=== PATIENT | male | born 1970 | race Caucasian/White ===

== ENCOUNTER 2017-10-17 15:37 | Day surgery (SDC) | payer BC, SELFPAY ==
[2017-10-17 16:10] VITALS: BP 107/65; PULSE 71; RESP 20; TEMP 36.6; O2SAT 97
--- NOTE | 2017-10-17 16:13 | HMH.PMPROC ---
- Procedure Date: 10/17/17 Time: 16:18 Anesthesiologist:: Royce Briseno CRNA Complications:: None Pre-procedure Diagnosis:: Right sacroiliitis Post-procedure Diagnosis:: Same Indications for Procedure:: Very pleasant 47-year-old white male that is complaining of right hip pain. He has extreme point tenderness over the right SI joint. Procedure Details:: Procedure: Right sacroliliac joint injection under fluoroscopy Informed consent was obtained and the risk and benefits of the procedure were explained to the patient.~ The patient was taken to the procedure room and noninvasive monitors were placed including noninvasive blood pressure cuff and pulse oximeter.~ The patient was placed prone on the procedure table.~ The~ right hip was cleansed using Betadine as a cleansing solution.~ C-arm fluorosocpy was used to view the right SI joint.~ The skin and subcutaneous tissues were anesthetized using Lidocaine 1.5% and a 25-gauge needle.~ After this, a 22-gauge spinal needle was inserted under fluoroscopic guidance into the inferior aspect of the right SI joint.~ Omnipaque dye was injected and a good spread was seen throughout the joint.~ After this, approximately 5 mL of bupivacaine 0.25% and Depo-Medrol 40 mg was incrementally injected into the sacroiliac joint.~ The patient tolerated the procedure well with no complications.~ The patient was observed in the Pain Clinic, then discharged home neurologically intact.~ Plan and Disposition:: She was reevaluated 10 minutes post procedure. He reports 75% improvement terms of right hip pain.
[2017-10-17 16:17] VITALS: BP 138/83; PULSE 67; RESP 18
[2017-10-17 16:18] VITALS: BP 140/90; PULSE 67; RESP 18
[2017-10-17 16:27] VITALS: BP 113/79; PULSE 81; O2SAT 99
== END 2017-10-17 16:27 | disposition home or self-care (01) ==
LOC: SC.PAINP 15:38
PROVIDERS: Family Provider Family Medicine; PCP Family Medicine; Visit Provider Nurse Anesthetist, Certified Registered
DX: M46.1 Sacroiliitis, not elsewhere classified (principal)
CPT/HCPCS: 27096; G0260; J1040

== ENCOUNTER → 2017-11-27 16:37 | Outpatient (CLI) | payer BC, SELFPAY ==
--- NOTE | 2017-11-27 | XR_ITS ---
XR chest 2V HISTORY: ITS.REASON: CHEST PAIN ORDERING PHYSICIAN: Jarek Lipscomb MD PATIENT AGE: 47 years COMPARISON: None available FINDINGS: There has been a prior median sternotomy with aortic valve replacement. There is mild cardiomegaly without failure. Lungs are clear bilaterally. No acute bony anomalies. IMPRESSION: Postsurgical change, no acute finding
[2017-11-27 17:29] LABS: Basophils % 0.4 % (0.1-2.0); Eosinophils # 0.1 K/mm3 (0.0-0.4); Eosinophils % 1.5 % (0.1-12.0); Hematocrit 43.3 % (42.0-52.0); Hemoglobin 15.1 g/dL (14.1-18.0); Lymphocytes # 1.7 K/mm3 (0.7-4.5); Lymphocytes % 18.5 K/mm3 (10-50); Mean Corpuscular HGB Conc 34.9 g/dL (31.8-35.4); Mean Corpuscular Hemoglobin 29.6 pg (27.0-31.2); Mean Corpuscular Volume 84.7 fl (80-94); Mean Platelet Volume 7.9 fl (7.4-10.4); Monocytes # 0.7 K/mm3 (0.1-1.0); Monocytes % 7.7 % (1.7-9.3); Neutrophils # 6.5 K/mm3 (1.8-7.8); Neutrophils % 71.9 % (37.0-80.0); Platelet Count 198 K/mm3 (142-424); Red Blood Count 5.12 M/mm3 (4.60-6.20); Red Cell Distribution Width 12.8 % (11.5-17.5); White Blood Count 9.1 K/mm3 (4.8-10.8)
[2017-11-27 17:48] LABS: INR 4.47 (0.9-1.1)
[2017-11-27 18:49] LABS: Troponin I < 0.02 ng/ml (0.00-0.06)
[2017-11-27 18:51] LABS: Alanine Aminotransferase 32 U/L (12-78); Albumin Level 4.4 gm/dL (3.4-5.0); Albumin/Globulin Ratio 1.7 (1.1-1.8); Alkaline Phosphatase 90 U/L (46-116); Anion Gap 12.8 mEq/L (5-15); Aspartate Amino Transferase 15 U/L (15-37); Bilirubin,Total 0.8 mg/dL (0.2-1.0); Blood Urea Nitrogen 8 mg/dL (7-18); CKMB Relative Index 0.5 U/L (0-4.0); Calcium 8.7 mg/dL (8.5-10.1); Carbon Dioxide 27 mmol/L (21.0-32.0); Chloride 106 mmol/L (98-107); Creatine Kinase 193 U/L (39-308); Creatinine,Serum 0.77 mg/dL (0.70-1.30); Estimated Glomerular Filt Rate 109 ml/min (>60); GFR (African American) 132 ML/MIN (>60); Globulin 2.6 gm/dl (1.3-3.2); Glucose 91 mg/dL (74-106); Potassium 3.8 mmoL/L (3.5-5.1); Sodium 142 mmol/L (136-145); Thyroid Stimulating Hormone 1.29 uIU/ml (0.358-3.740)
[2017-11-27 21:03] LABS: Erythrocyte Sedimentation Rate 2 mm/hr (0-15)
== END ==
PROVIDERS: PCP Family Medicine; Visit Provider Family Medicine
DX: R07.9 Chest pain, unspecified (principal)
CPT/HCPCS: 36415; 71046; 80053; 82550; 82553; 84443; 84484; 85025; 85610; 85651; 93005

== ENCOUNTER → 2019-02-01 06:59 | Outpatient (CLI) | payer BC, SELFPAY ==
[2019-02-01 07:54] LABS: Creatinine,Urine Random 310 mg/dL (20-320)
[2019-02-01 08:32] LABS: Alanine Aminotransferase 36 U/L (12-78); Albumin Level 4.3 gm/dL (3.4-5.0); Albumin/Globulin Ratio 1.5 (1.1-1.8); Alkaline Phosphatase 93 U/L (46-116); Aspartate Amino Transferase 15 U/L (15-37); Blood Urea Nitrogen 13 mg/dL (7-18); Calcium 9.1 mg/dL (8.5-10.1); Carbon Dioxide 28 mmol/L (21.0-32.0); Chloride 106 mmol/L (98-107); Chol/HDL Ratio 3.8 (1-3.5); Cholesterol 129 mg/dL (140-200); Creatinine,Serum 1.05 mg/dL (0.70-1.30); Estimated Glomerular Filt Rate 76 ml/min (>60); GFR (African American) 92 ML/MIN (>60); Globulin 2.8 gm/dl (1.3-3.2); Glucose 92 mg/dL (74-106); HDL Cholesterol 34 mg/dL (27-67); LDL Cholesterol 79 mg/dL (0-130); Sodium 143 mmol/L (136-145); Thyroid Stimulating Hormone 1.33 uIU/ml (0.358-3.740); Total Protein,Serum 7.1 gm/dL (6.4-8.2); Triglycerides 82 mg/dL (30-200); VLDL Cholesterol 16 mg/dL (0-40)
[2019-02-02 12:41] LABS: Microalbumin, Urine 8.3 ug/mL (Not Estab.)
== END ==
PROVIDERS: Visit Provider Family Medicine
DX: I10 Essential (primary) hypertension (principal); E78.00 Pure hypercholesterolemia, unspecified
CPT/HCPCS: 36415; 80053; 80061; 82043; 82570; 84443

== ENCOUNTER → 2019-03-27 10:24 | Outpatient (CLI) | payer BC, SELFPAY ==
--- NOTE | 2019-03-27 10:30 | XR_ITS ---
EXAM: XR lumbar spine min 4V HISTORY: ITS.REASON: RT LBP WITH SCIATICA ORDERING PHYSICIAN: HENRI Perez PATIENT AGE: 48 years COMPARISON: None FINDINGS: Normal alignment. No fracture or dislocation. No lytic or blastic change. The disc spaces are well-preserved. There is mild facet sclerosis at L5-S1. Mild lumbar curvature convex right. Surgical clips are present in the right upper quadrant. IMPRESSION: 1. Mild facet sclerosis/arthritic change L5-S1 2. Otherwise negative lumbar spine
== END ==
PROVIDERS: PCP Physician Assistant; Visit Provider Physician Assistant
DX: M54.41 Lumbago with sciatica, right side (principal)
CPT/HCPCS: 72110

== ENCOUNTER → 2019-04-01 08:08 | Outpatient (CLI) | payer BC, SELFPAY ==
--- NOTE | 2019-04-01 08:18 | MR_ITS ---
MR lumbar spine wo con HISTORY: ITS.REASON: ACUTE RIGHT SIDED LOW BACK PAIN ORDERING PHYSICIAN: HENRI Perez PATIENT AGE: 48 years Comparison: 09/11/2017. TECHNIQUE: Standard multiplanar multiecho sequences performed without contrast. 3-D MIP and myelographic images are also rendered and reviewed FINDINGS: Alignment and vertebral body heights and signal from the osseous marrow elements are stable. Again seen are foci of increased T1 signal consistent with cavernous hemangiomas at multiple levels especially posteriorly at the L1 level. The smaller foci involving superior L3 and the anterior superior T12 vertebral bodies are intermediate T1 and increased T2 signal and are still stable likely related to cavernous hemangiomas with lack of fat. L4-5 level again shows a very small bulge which is even smaller today study with associated stable small annular tear. There is no definite herniation. The remainder of the disc levels are normal without bulge, herniation or central canal stenosis. Nerve roots and foraminal areas are normal. Conus and cauda equina structures are normal. The left renal small cortical cysts are stable. IMPRESSION: L5-S1 previously described bulge is mildly smaller. Annular tear at this site is still present which may not necessarily be of clinical significance. The remainder of the exam is stable. There is no new bulge or herniation or central canal stenosis.
== END ==
PROVIDERS: PCP Family Medicine; Visit Provider Physician Assistant
DX: M54.41 Lumbago with sciatica, right side (principal); M54.42 Lumbago with sciatica, left side; M62.81 Muscle weakness (generalized)
CPT/HCPCS: 72148; 76376

== ENCOUNTER → 2020-09-14 15:56 | Outpatient (CLI) | payer BC, SELFPAY ==
--- NOTE | 2020-09-14 15:59 | XR_ITS ---
PROCEDURE: XR CHEST 2V CLINICAL HISTORY: EPIGASTRIC ABD PAIN Epigastric pain and chest pain COMPARISON: CR CXR2V XR chest 2V from 11/27/2017 CR XR ACUTE ABDOMEN SERIES from 09/14/2020 FINDINGS: Prior aortic valve replacement.. There is mild cardiomegaly without failure. The lungs are clear without infiltrates, suspicious nodules, or pleural effusions. No acute bony abnormalities. IMPRESSION: Prior aortic valve replacement with mild cardiomegaly with no acute finding Dictated by: Murray Silva MD 09/14/2020 17:16 Murray Silva MD in [facility] 09/14/2020 17:16
--- NOTE | 2020-09-14 15:59 | XR_ITS ---
PROCEDURE: XR ACUTE ABDOMEN SERIES CLINICAL INDICATION: EPIGASTRIC ABD PAIN COMPARISON: No exams were available for comparison FINDINGS: Frontal view of the chest shows no acute finding. There has been a prior aortic valve replacement. Upright and supine views of the abdomen show a nonspecific bowel gas pattern. There are few air-fluid levels in the right lower quadrant. No intestinal obstruction or free air. There are surgical clips in the right upper quadrant. No acute bony finding. No abnormal calcifications IMPRESSION: No acute findings. Dictated by: Murray Silva MD 09/15/2020 17:33 Murray Silva MD in [facility] 09/15/2020 17:33
== END ==
PROVIDERS: PCP Family Medicine; Visit Provider Family Medicine
DX: R10.13 Epigastric pain (principal)
CPT/HCPCS: 71046; 74021

== ENCOUNTER → 2020-09-15 08:29 | Outpatient (CLI) | payer BC, SELFPAY ==
--- NOTE | 2020-09-15 08:31 | XR_ITS ---
PROCEDURE: REPEAT VIEW XR CLINICAL INDICATION: Abdominal pain COMPARISON: No exams were available for comparison FINDINGS: Upright and supine views of the abdomen show a nonspecific bowel gas pattern. There are few air-fluid levels in the right lower quadrant. No intestinal obstruction or free air. There are surgical clips in the right upper quadrant. No acute bony finding. No abnormal calcifications IMPRESSION: No acute findings. Dictated by: Murray Silva MD 09/15/2020 17:34 Murray Silva MD in [facility] 09/15/2020 17:34
== END ==
PROVIDERS: PCP Family Medicine; Visit Provider Family Medicine
DX: R10.13 Epigastric pain (principal)

== ENCOUNTER → 2020-12-19 10:12 | Outpatient (CLI) | payer BC, SELFPAY ==
[2020-12-19 13:37] LABS: Coronavirus 19 IgG Antibody Positive (Negative); Coronavirus 19 IgM Antibody Negative (Negative)
== END ==
PROVIDERS: Visit Provider Internal Medicine Gastroenterology
DX: Z01.818 Encounter for other preprocedural examination (principal); Z20.822 Contact with and (suspected) exposure to COVID-19; Z13.810 Encounter for screening for upper gastrointestinal disorder
CPT/HCPCS: 36415; 86328

== ENCOUNTER 2020-12-21 10:01 | Day surgery (SDC) | payer BC, SELFPAY ==
[2020-12-17 09:36] VITALS: BMI 31.1
[2020-12-21 11:35] VITALS: BP 118/81; PULSE 72; RESP 18; TEMP 36.3; O2SAT 100
[2020-12-21 12:36] VITALS: O2SAT 97
--- NOTE | 2020-12-21 12:57 | HMH.PROC ---
[facility] Procedure Note Procedure Note:: Upper Endoscopy Procedure Report: Esophagogastroduodenoscopy with cold biopsies Endoscopost: Mike De II, MD Referring Physician: Jarek Lipscomb MD Date of Procedure: December 21, 2020 Equipment: Olympus GIF 190 standard upper endoscope Sedation: MAC sedation Indications: Mr. Whitfield is a 50-year-old gentleman who has had epigastric and retrosternal pain and pressure that radiates into the back. He has had some belching. He has had reflux in the past and states that this is different. He has had mild nausea. He reports no heartburn, reflux or early satiety. He does have some bloating. He reports regular bowel function. He does state that PPI therapy (pantoprazole) did not improve his symptoms. His recent amylase 66 was normal and he had normal liver chemistries (ALT 23, AST 13, alkaline phosphatase 83. He also had normal hemoglobin and hematocrit (16.5 and 47.7). Procedure: Prior to the procedure, a history and physical exam was performed, and patient's medications and allergies were reviewed. The risks, benefits and alternatives of the sedation and procedure were discussed with the patient. All questions were answered and informed consent was obtained. The patient was brought to the procedure room. Patient identification and proposed procedure were verified by the physician and the nurse. The patient was placed in a left lateral decubitus position and the scope was passed under direct vision. Throughout the procedure, the patient's blood pressure, pulse, and oxygen saturations were monitored continuously. The upper GI endoscopy was accomplished without difficulty. The patient tolerated the procedure well. Findings: The scope was passed directly into the upper esophagus and advanced to the third portion of the duodenum. The post bulbar duodenum had some mild duodenal lymphoid stasis. Cold biopsies were taken from the first portion of the duodenum. The scope was withdrawn through a normal duodenal bulb and pylorus into the stomach. There was evidence of moderate linear reactive gastropathy of the antrum and body of the stomach with bile reflux. The remainder of the fundus of the stomach were grossly normal. Upon retroflexion there was a 2 cm hiatal hernia. 2 biopsies were taken in the antrum and along the lesser curvature for histology to rule out gastritis and/or H pylori. The scope was then withdrawn into the esophagus. There was evidence of short segment Irby's esophagus ([place] classification C2M3). Directed biopsies were obtained distally. There was no evidence of reflux esophagitis. There were some tertiary contractions and evidence of mild esophageal dysmotility. The remainder of the esophageal mucosa was normal. Impression: 1. Short segment Irby's esophagus with nonerosive GERD and mild esophageal dysmotility with small 2 cm hiatal hernia 2. Bile reflux with linear reactive gastropathy Plan: I will follow-up the biopsies. The patient does have complicated GERD and I would recommend PPI therapy (omeprazole 40 mg daily). The patient also has some functional dyspepsia and esophageal dyskinesia. We will discuss dietary measures and treatment options.
[2020-12-21 12:58] VITALS: BP 142/90; PULSE 104; RESP 18; TEMP 36.6; O2SAT 95
[2020-12-21 13:08] VITALS: BP 150/89; PULSE 86; RESP 18; O2SAT 97
[2020-12-21 13:18] VITALS: BP 142/95; PULSE 76; RESP 18; O2SAT 97
--- NOTE | 2020-12-21 13:19 | P.PN_ITS ---
[facility] Anesthesia Checklist - Patient Identification Patient Identification: Arm Band - Structural Data Admitted From: Home Planned Operative Procedure/s: egd Consent for Planned Operative Procedure(s) Verified: Yes Verified Documents: Surgical Consent, History and Physical - NPO Status Verified Time NPO: 00:00 - Additional verifications Anesthesia Reactions: No Hx Blood Transfusions: No Blood Transfusion Reaction: No - Airway Assessment C-Spine Mobility Assessed: Yes (mp2) TMJ Mobility Assessed: Yes Dentition: Good Dentition - Neurological Assessment Level of Consciousness: Awake, Alert - Anesthesia Plan Anesthesia Risk discussed: Yes Anesthesia Plan: Patient unable to respond/answer ASA Class: III Anesthesia Type: MAC [facility] History I have reviewed the patient's past medical history: Yes Medical History: Reports:: Valvular Heart Disease Denies:: Cancer, Diabetes Mellitus Type 1, Diabetes Mellitus Type 2, MRSA, Seizures *Have you ever received a pneumonia vaccine?: No *Have you received a flu vaccine this season?: No Other Medical History: Reports: Arthritis, Sinus Problems. Denies: Blood Transfusion Reaction Anesthesia experience/problems:: nac Laterality Cases: Bilateral: Tonsillectomy Other Surgeries: Yes: Other Valve Replacement Amputation: No Fractures: No - *Social History Last grade of school completed: Advanced degree Smoking Status: Never smoker Alcohol Intake: never Substance Use Type: denies use *Occupational Status:: employed Housing: house Household Members: other *Travel in the last 8 weeks: None Family Hx:: No significant family history
[2020-12-21 13:45] VITALS: BP 123/87; PULSE 72; RESP 18; O2SAT 98
== END 2020-12-21 13:53 | disposition home or self-care (01) ==
LOC: OUTP 10:04
PROVIDERS: PCP Family Medicine; Visit Provider Internal Medicine Gastroenterology
PROC: 0DJ08ZZ Inspection of Upper Intestinal Tract, Via Natural or Artificial Opening Endoscopic (ICD-10-PCS; CPT 43235; principal; 2020-12-21 13:00)
DX: K22.70 Barrett's esophagus without dysplasia (principal); K21.9 Gastro-esophageal reflux disease without esophagitis; K22.4 Dyskinesia of esophagus; K31.9 Disease of stomach and duodenum, unspecified; K44.9 Diaphragmatic hernia without obstruction or gangrene; Z88.0 Allergy status to penicillin; Z79.899 Other long term (current) drug therapy
CPT/HCPCS: 43239

== ENCOUNTER → 2021-03-22 14:48 | Outpatient (POV) | payer BC, SELFPAY | PROVIDERS: Visit Provider Nurse Practitioner Family | DX: Z00.00 Encounter for general adult medical examination without abnormal findings (principal) ==

== ENCOUNTER → 2021-06-15 09:47 | Outpatient (CLI) | payer BC, SELFPAY ==
--- NOTE | 2021-06-15 09:51 | NM_ITS ---
PROCEDURE: NM GASTRIC EMPTYING STUDY CLINICAL INDICATION: epigastric abd pain COMPARISON: No exams were available for comparison TECHNIQUE: DOSE: 0.51 mCi sulfur colloid injected into radial labeled meal. FINDINGS: Time activity curve generated following the course of gastric emptying. The 1/2 emptying time is 69 minutes which is within normal limits. 0 percent retention at 240 minutes. Images submitted show no evidence of gastroesophageal reflux. IMPRESSION: Normal gastric emptying time with 0 percent retention at 4 hours. Dictated by: Murray Silva MD 06/16/2021 09:15 Murray Silva MD in [facility] 06/16/2021 09:15
== END ==
PROVIDERS: PCP Family Medicine; Visit Provider Family Medicine
DX: R10.13 Epigastric pain (principal)
CPT/HCPCS: 78264; A9541

== ENCOUNTER → 2021-06-17 08:48 | Outpatient (CLI) | payer BC, SELFPAY ==
--- NOTE | 2021-06-17 08:51 | FL_ITS ---
PROCEDURE: FL UPPER GI SMALL BOWEL CLINICAL INDICATION: EIGASTRIC PAIN COMPARISON: No exams were available for comparison TECHNIQUE: FLUOROSCOPY TIME : 2.42 minutes FINDINGS: The esophagus, stomach, and duodenum have an unremarkable appearance.There is a small hiatal hernia. No ulcer or mass evident. No mucosal abnormalities apparent. There is normal peristalsis. The duodenal C-loop is nondisplaced. Small bowel has an unremarkable appearance. No obstructing lesions mucosal abnormalities or masses. Terminal ileum has an unremarkable appearance. IMPRESSION: Small hiatal hernia otherwise negative upper GI and small-bowel follow-through Dictated by: Murray Silva MD 06/17/2021 13:21 Murray Silva MD in [facility] 06/17/2021 13:21
== END ==
PROVIDERS: PCP Family Medicine; Visit Provider Family Medicine
DX: R10.13 Epigastric pain (principal)
CPT/HCPCS: 74246; 74248

== ENCOUNTER → 2021-07-29 14:51 | Outpatient (CLI) | payer BC, SELFPAY ==
--- NOTE | 2021-07-29 14:55 | MR_ITS ---
PROCEDURE: MR ABDOMEN WO/W CON CLINICAL INDICATION: EPIGASTIC PAIN COMPARISON: CT ABDPELW/O CT ABD PELVIS W/O CONTRAST from 04/25/2017 TECHNIQUE: Routine multiplanar multi echo sequences are performed without gadolinium enhancement. FINDINGS: There is diffuse fatty liver infiltration. There are few small T2 hyperintensities of the liver is consistent with small cysts the largest in the right hepatic lobe segment 5 measuring approximately mm. No suspicious hepatic lesions. There has been a prior cholecystectomy. There is mild splenomegaly at 14 cm. There are small left renal cysts the largest at 17 mm. No suspicious renal mass. Pancreas has an unremarkable appearance MRCP images are obtained. There has been a prior cholecystectomy. The cystic duct is fairly long measuring 3 cm in length but is not dilated with no obvious cystic duct stones. No biliary dilatation. Pancreatic duct has an unremarkable appearance. Incidental note made of this a small T2 hyperintensity in the T11 vertebral body posteriorly and slightly toward the left measuring approximately 9 mm. IMPRESSION: No acute abdominal findings. Diffuse fatty liver with small hepatic cysts and left renal cysts. Prior cholecystectomy. No biliary or pancreatic ductal dilatation. Dictated by: Murray Silva MD 08/01/2021 08:25 Murray Silva MD in [place] 08/01/2021 08:25
== END ==
PROVIDERS: PCP Family Medicine; Visit Provider Nurse Practitioner Family
DX: R10.13 Epigastric pain (principal); K30 Functional dyspepsia
CPT/HCPCS: 74183; 76376; A9576

== ENCOUNTER → 2022-05-28 08:15 | Outpatient (CLI) | payer BC, SELFPAY | PROVIDERS: PCP Family Medicine; Visit Provider Surgery | DX: Z01.812 Encounter for preprocedural laboratory examination (principal); Z20.822 Contact with and (suspected) exposure to COVID-19; Z12.11 Encounter for screening for malignant neoplasm of colon | CPT/HCPCS: C9803; U0003; U0005 ==

== ENCOUNTER 2022-05-31 08:08 | Day surgery (SDC) | payer BC, SELFPAY ==
[2022-05-27 08:51] VITALS: BMI 31.1
[2022-05-31] VITALS (8 sets, daily range): BP systolic 92–114; BP diastolic 54–78; PULSE 74–108; RESP 12–16; TEMP 36.3–36.6; O2SAT 95–97
--- NOTE | 2022-05-31 09:02 | HMH.ANESCL ---
[facility] Anesthesia Checklist - Patient Identification Patient Identification: Arm Band - Structural Data Admitted From: Home Planned Operative Procedure/s: Colonoscopy Consent for Planned Operative Procedure(s) Verified: Yes - NPO Status Verified Time NPO: 06:30 (Prep) - Additional verifications Anesthesia Reactions: No Hx Blood Transfusions: No Blood Transfusion Reaction: No - Airway Assessment C-Spine Mobility Assessed: Yes TMJ Mobility Assessed: Yes Dentition: Good Dentition - Neurological Assessment Level of Consciousness: Awake Hx Seizures: No Numbness or tingling in extremities: No - Anesthesia Plan Anesthesia Risk discussed: Yes Anesthesia Plan: Verified ASA Class: II Anesthesia Type: MAC [facility] History I have reviewed the patient's past medical history: Yes Medical History: Reports:: Valvular Heart Disease Denies:: Cancer, Diabetes Mellitus Type 1, Diabetes Mellitus Type 2, Internal Pacemaker, MRSA, Seizures *Have you ever received a pneumonia vaccine?: No *Have you received a flu vaccine this season?: No Other Medical History: Reports: Arthritis, Sinus Problems. Denies: Blood Transfusion Reaction Anesthesia experience/problems:: None Laterality Cases: Bilateral: Tonsillectomy Other Surgeries: Yes: Other Valve Replacement. No: Pacemaker Amputation: No Fractures: No - *Social History Last grade of school completed: Advanced degree Smoking Status: Never smoker Alcohol Intake: never Substance Use Type: denies use *Occupational Status:: employed Housing: house Household Members: spouse *Travel in the last 8 weeks: None Family Hx:: No significant family history
--- NOTE | 2022-05-31 09:57 | P.PCN_ITS ---
- Procedure: Date: 05/31/22 Patient Date of :: 1970 Procedure Performed:: Colonoscopy with polypectomy Indications:: Screening Note: The patient does have a history of Irby's esophagus and is status post EGD in December 2020 (Dr. De). He is continuing proton pump inhibition and is without complaint. Performing Provider:: Richie Garcia MD Referring Provider:: Dr. Lipscomb Sedation:: Monitored anesthesia care Procedure:: After informed consent was obtained the patient was taken to the endoscopy suite. Sedation ensued after the patient was transferred to the left lateral decubitus position. Pulse, blood pressure, and oxygen saturation were monitored throughout the procedure. Digital rectal exam revealed no significant abnorma lity. The colonoscope was placed in position. The entire colon was evaluated. The colonoscope was carefully removed and the patient was transferred to recovery in stable condition. Please see findings and specimens below for detail. Findings:: Bowel preparation fair to moderate Fairly severe lack of relaxation Significant sigmoid tortuosity Polyp at 50 cm Specimens:: Polyp at 50 cm (cold snare) Recommendations:: Timing of repeat colonoscopy is pending pathology but will likely be around 2 years secondary to slightly-limiting bowel preparation, lack of relaxation, and tortuosity. He will likely benefit from repeat esophagogastroduodenoscopy no later than December 2022 secondary to history of Irby's (no dysplasia noted per pathology) Complications:: No immediate Estimated blood obtained (mL): 1
== END 2022-05-31 10:47 | disposition home or self-care (01) ==
LOC: OUTP 08:09
PROVIDERS: PCP Family Medicine; Visit Provider Surgery
PROC: 0DJD8ZZ Inspection of Lower Intestinal Tract, Via Natural or Artificial Opening Endoscopic (ICD-10-PCS; CPT 45385; principal; 2022-05-31 09:30)
DX: Z12.11 Encounter for screening for malignant neoplasm of colon (principal); K63.5 Polyp of colon; K22.70 Barrett's esophagus without dysplasia; Z79.899 Other long term (current) drug therapy
CPT/HCPCS: 45385; J2704

== ENCOUNTER → 2022-09-05 16:37 | Outpatient (CLI) | payer BC, SELFPAY ==
--- NOTE | 2022-09-05 16:47 | XR_ITS ---
PROCEDURE INFORMATION: Exam: XR Right Knee Exam date and time: 09/05/2022 4:58 PM Age: 52 years old Clinical indication: Pain and injury or trauma; Fall; Blunt trauma; Knee; Right; Additional info: Acute RT knee pain TECHNIQUE: Imaging protocol: Radiologic exam of the Right knee. Views: 3 views. COMPARISON: No relevant prior studies available. FINDINGS: Bones/joints: The knee is normally aligned with mild tricompartment degenerative change. There is no acute fracture. There is no significant joint effusion. Soft tissues: Significant soft tissue prominence over the patella and patellar tendon either representing bursitis or hematoma. IMPRESSION: 1. Significant prepatellar bursitis versus hematoma. 2. Mild tricompartment degenerative change without acute osseous abnormality.
== END ==
PROVIDERS: PCP Family Medicine; Visit Provider Family Medicine
DX: M25.561 Pain in right knee (principal)
CPT/HCPCS: 73562

== ENCOUNTER → 2022-09-13 15:12 | Outpatient (POV) | payer BC, SELFPAY | PROVIDERS: Visit Provider Dermatology | DX: Z00.00 Encounter for general adult medical examination without abnormal findings (principal) ==

== ENCOUNTER → 2022-09-27 14:47 | Outpatient (POV) | payer BC, SELFPAY | PROVIDERS: Visit Provider Dermatology | DX: Z00.00 Encounter for general adult medical examination without abnormal findings (principal) ==

== ENCOUNTER → 2023-05-24 06:50 | Outpatient (CLI) | payer BC, SELFPAY ==
--- NOTE | 2023-05-24 | CA_ITS ---
FINAL REPORT TECHNIQUE: Color Doppler, duplex Doppler and compression sonography of the left lower extremity deep venous systems was performed. CLINICAL HISTORY: LLE medial thigh pain, no injury Pt on coumadin since 2008 AVR, INR 3.2 COMPARISON: None FINDINGS: There is no evidence of deep venous thrombosis from the level of the groin to the calf. The veins are patent and compressible. There is a 2.8 x 5.5 x 2.5 cm hypoechoic mass in the medial thigh which is nonspecific. This may represent hematoma or mass. IMPRESSION: No evidence of deep venous thrombosis left lower extremity. 5.5 cm hypoechoic mass medial thigh. Consider follow-up ultrasound. Reviewed, Interpreted and Dictated by Go Limon III, MD Transcribed by Annie Villanueva Authenticated and [facility]
== END ==
PROVIDERS: PCP Family Medicine; Visit Provider Family Medicine
DX: M79.605 Pain in left leg (principal)
CPT/HCPCS: 93971

== ENCOUNTER → 2023-08-22 15:39 | Outpatient (POV) | payer BC, SELFPAY | PROVIDERS: PCP Family Medicine; Visit Provider Dermatology | DX: Z00.00 Encounter for general adult medical examination without abnormal findings (principal) ==

== ENCOUNTER 2023-11-28 08:09 | Outpatient (CLI) | payer BC, SELFPAY ==
--- NOTE | 2023-11-28 08:24 | US_ITS ---
FINAL REPORT TECHNIQUE: Ultrasound images of the testicles were obtained bilaterally. Color Doppler images were obtained. CLINICAL HISTORY: SCROTAL MASS COMPARISON: None FINDINGS: The testicles are homogeneous without evidence of mass. There is proper flow. There is a multilocular cystic mass in the right epididymal head measuring up to 1.8 x 0.8 cm. There is a small cyst in the left epididymal head measuring 0.4 x 0.3 cm. 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 Reviewed, Interpreted and Dictated by Flako Griffith MD Transcribed by Annie Villanueva Authenticated and [facility]
--- NOTE | 2023-11-28 08:24 | CT_ITS ---
FINAL REPORT TECHNIQUE: Routine axial images were obtained from the lung apices to below the diaphragm following IV contrast administration. Individualized dose reduction techniques using automated exposure control or adjustment of the mA and/or kV according to the patient size were employed. CLINICAL HISTORY: LUNG NODULE COMPARISON: None FINDINGS: No acute lung disease is present. No pleural or pericardial effusion is seen. There is an 11 mm pleural-based nodule in the posterior left lower lobe, noncalcified. This is best seen on image #51 of series 2. No other focal mass or nodule is identified. No significant hilar or mediastinal adenopathy is present. No axillary adenopathy is noted. The gallbladder is surgically absent. IMPRESSION: 11 mm pleural-based nodule in the posterior left lower lobe, noncalcified. Reviewed, Interpreted and Dictated by Flako Griffith MD Transcribed by Porsche Sigala Authenticated and [facility]
[2023-11-28 08:40] LABS: Blood Urea Nitrogen 11 mg/dl (9-20); Estimated Glomerular Filt Rate 89 ml/min (>60); GFR (African American) 107 ML/MIN (>60)
[2023-11-28] MEDS: IOPAMIDOL-370 (76%);100ML BOTTLE 75 ML IV (09:08)
== END 2023-11-28 23:59 ==
LOC: RAD 08:10
PROVIDERS: PCP Family Medicine; Visit Provider Family Medicine
DX: N50.89 Other specified disorders of the male genital organs (principal); R91.1 Solitary pulmonary nodule
CPT/HCPCS: 36415; 71260; 76870; 82565; 84520; Q9967

== ENCOUNTER 2024-04-17 13:09 | Outpatient (CLI) | payer BC, SELFPAY ==
--- NOTE | 2024-04-17 | MR_ITS ---
FINAL REPORT CLINICAL HISTORY: PARESTHESIA OF SADDLE AREA COMPARISON: None FINDINGS: Multiplanar MR imaging of the lumbar spine was performed without contrast. On the sagittal T2-weighted images, disc degeneration is seen at multiple levels. The vertebral alignment is normal. There is no evidence of fracture. Several hemangiomas are noted. The conus has an unremarkable appearance. L1-2: There is no significant canal stenosis or neural foraminal narrowing. L2-3: An annular bulge is present. There is no significant canal stenosis or neural foraminal narrowing. L3-4: An annular bulge is present. Small central disc protrusion. Mild bilateral neural foraminal narrowing. L4-5: An annular bulge is present. Small central disc protrusion. Mild bilateral neural foraminal narrowing. L5-S1: Annular disc bulge and facet arthropathy. Left foraminal annular tear and small disc protrusion compressing the left S1 nerve root. Moderate bilateral neural foraminal narrowing. IMPRESSION: Multilevel degenerative disc disease and spondylosis as described. L5-S1 annular tear and disc protrusion compressing the left S1 nerve root. Reviewed, Interpreted and Dictated by Go Limon III, MD Transcribed by Annie Villanueva Authenticated and [facility]
== END 2024-04-17 23:59 | disposition home or self-care (01) ==
LOC: RAD 13:10
PROVIDERS: PCP Family Medicine; Visit Provider Family Medicine
DX: M53.3 Sacrococcygeal disorders, not elsewhere classified (principal); R20.2 Paresthesia of skin
CPT/HCPCS: 72148

== ENCOUNTER 2024-05-30 07:02 | Outpatient (CLI) | payer BC, SELFPAY ==
--- NOTE | 2024-05-30 07:27 | MR_ITS ---
FINAL REPORT TECHNIQUE: Multiplanar MR without contrast CLINICAL HISTORY: SACRAL PAIN. bilateral leg numbness. tailbone pain. no injury or trauma COMPARISON: None FINDINGS: MRI PELVIS ATTENTION SACRUM AND COCCYX: MRI of the pelvis was performed with special attention to the sacrum and coccyx. The sacrum is unremarkable in appearance without evidence of bone marrow edema. There is slight abnormal signal noted in an upper coccygeal segment seen on sagittal image #18 of series 5. There is a very small amount of bone marrow edema seen on the STIR images, image #37 of series 7. The SI joints are intact. Would recommend correlation with the site of point tenderness. IMPRESSION: Slight abnormal signal noted in an upper coccygeal segment as described above, recommend correlation with the site of point tenderness. Reviewed, Interpreted and Dictated by Flako Griffith MD Transcribed by Porsche Sigala Authenticated and [facility]
== END 2024-05-30 23:59 | disposition home or self-care (01) ==
LOC: RAD 07:03
PROVIDERS: PCP Family Medicine; Visit Provider Nurse Practitioner
DX: M54.89 Other dorsalgia (principal)
CPT/HCPCS: 72195

== ENCOUNTER 2024-07-16 08:28 | Day surgery (SDC) | payer BC, SELFPAY ==
[2024-07-15 14:20] VITALS: BMI 29.8
[2024-07-16 08:44] VITALS: BP 116/81; PULSE 71; RESP 18; TEMP 36.3; O2SAT 95
[2024-07-16] MEDS: LACTATED RINGERS 1000ML 1,000 ML 25 ML IV (08:54)
--- NOTE | 2024-07-16 09:17 | EXP.ANES.CKL ---
[facility] Disclaimer: The information contained in this section may have been updated after the patient was seen, as this information can be updated by other users. Medical History Kidney stone History of gastroesophageal reflux (GERD) Hypertension Hyperlipidemia Surgical History H/O aortic valve replacement History of cholecystectomy History of colonoscopy Family History Other Family history of cancer Social History Smoking Status: Never smoker alcohol intake: never substance use type: denies use current occupational status: employed Travel in the last 8 weeks: None household members: spouse housing: house current occupation: teacher current occupational exposures/hazards: No caffeine: No [facility] Anesthesia Checklist Patient Identification Patient Identification: Arm Band Structural Data Admitted From: Home Planned Operative Procedure/s: Colonoscopy Consent for Planned Operative Procedure(s) Verified: Yes Verified Documents: Surgical Consent and History and Physical NPO Status Verified Time NPO: 00:00 Additional verifications Anesthesia Reactions: No Hx Blood Transfusions: No Blood Transfusion Reaction: No Airway Assessment Mallampati Score:: Class II C-Spine Mobility Assessed: Yes TMJ Mobility Assessed: Yes Dentition: Good Dentition Neurological Assessment Level of Consciousness: Awake, Alert and Appropriate Anesthesia Plan Anesthesia Risk discussed: Yes Anesthesia Plan: Verified ASA Class: II Anesthesia Type: MAC
--- NOTE | 2024-07-16 09:20 | P.PCN_ITS ---
Procedure: Date: 07/16/24 Patient Date of :: 1970 Procedure Performed:: Colonoscopy Indications:: History of colon polyps Colonoscopy in May 2022 was complicated by profound lack of relaxation, mode rate bowel preparation, and moderate tortuosity. An adenomatous polyp at 50 cm was excised. Performing Provider:: Richie Garcia MD Referring Provider:: . Sedation:: Monitored anesthesia care Procedure:: After informed consent was obtained the patient was taken to the endoscopy suite. Sedation ensued after the patient was transferred to the left lateral decubitus position. Pulse, blood pressure, and oxygen saturation were monitored throughout the procedure. Digital rectal exam revealed no significant abnormality. The colonoscope was placed in position. The entire colon was evaluated. The colonoscope was carefully removed and the patient was transferred to recovery in stable condition. Please see findings and specimens below for detail. Findings:: Bowel preparation fair Moderate tortuosity Specimens:: None Recommendations:: Repeat colonoscopy in 3-5 years Complications:: No immediate Estimated blood obtained (mL): 0 Comment:: The patient has a known history of Irby's esophagus and states that he is undergoing serial esophagogastroduodenoscopies as per gastroenterology. He continues on proton pump inhibition. Colonoscopy Component Colonoscopy Component Was a colonoscopy performed during today's procedure?: Yes Recommended follow up colonoscopy of at least 10 years?: No If no, follow up colonoscopy recommended in ___ years?: (See above) Reason for not recommending >/= 10 yr follow-up interval?: (See above)
[2024-07-16 09:25] VITALS: O2SAT 98
[2024-07-16 10:08] VITALS: BP 89/58; PULSE 91; RESP 16; TEMP 36.3; O2SAT 97
[2024-07-16 10:18] VITALS: BP 102/52; PULSE 89; RESP 17; TEMP 36.3; O2SAT 97
[2024-07-16 10:28] VITALS: BP 100/47; PULSE 80; RESP 18; O2SAT 99
[2024-07-16 10:38] VITALS: BP 104/60; PULSE 86; RESP 18; O2SAT 99
== END 2024-07-16 11:00 | disposition home or self-care (01) ==
PROVIDERS: PCP Family Medicine; Visit Provider Surgery
PROC: 0DJD8ZZ Inspection of Lower Intestinal Tract, Via Natural or Artificial Opening Endoscopic (ICD-10-PCS; CPT 45378; principal; 2024-07-16 09:30)
DX: Z86.0101 Personal history of adenomatous and serrated colon polyps (principal)
CPT/HCPCS: 45378; J2704; J7120